=== PATIENT | male | born 2000 ===

== ENCOUNTER 2018-08-18 21:29 | Emergency (ER) | payer SELFPAY ==
[2018-08-18 21:49] VITALS: BP 138/67; PULSE 84; RESP 16; TEMP 99.9; O2SAT 98
[2018-08-18] MEDS ORDERED: Sodium Chloride 0.9% 500 ML IV ONE ×3 (22:15→22:22)
--- NOTE | 2018-08-18 23:58 | C.PDOC ---
History Of Present Illness 18 year old male with a Hx of migraines presents to the ER with a complaint of a frontal headache associated with photophobia since yesterday. Denies weakness, numbness, or URI symptoms. Time Seen by Provider: 08/18/18 21:59 Chief Complaint (Nursing): Headache History Per: Patient History/Exam Limitations: no limitations Onset/Duration Of Symptoms: Days (Yesterday) Current Symptoms Are (Timing): Still Present Preceeding Symptoms: Known Migraine Symptoms Associated Symptoms: Photophobia. denies: Blurred Vision, Nausea, Vomiting, Extremity Weakness Recent travel outside of the [place]: No Past Medical History Reviewed: Historical Data, Nursing Documentation, Vital Signs Vital Signs: Last Vital Signs Temp 99.9 F H 08/18/18 21:46 Pulse 84 08/18/18 21:46 Resp 16 08/18/18 21:46 BP 138/67 08/18/18 21:46 Pulse Ox 98 08/18/18 21:46 Family History: States: Unknown Family Hx - Social History Hx Alcohol Use: No Hx Substance Use: No - Immunization History Hx Tetanus Toxoid Vaccination: Yes Hx Influenza Vaccination: Yes Hx Pneumococcal Vaccination: No Review Of Systems Constitutional: Negative for: Fever, Chills Eyes: Positive for: Other (Photophobia) ENT: Negative for: Throat Pain Respiratory: Negative for: Cough Neurological: Positive for: Headache Physical Exam - Physical Exam Appears: Non-toxic Skin: Normal Color, Warm, Dry Head: Atraumatic, Normacephalic Eye(s): bilateral: Normal Inspection, PERRL, EOMI Ear(s): Bilateral: Normal Nose: Normal Oral Mucosa: Moist Throat: Normal, No Erythema, No Exudate Neck: Normal, No Midline Cervical Tenderness, No Paracervical Tenderness, Supple Extremity: Normal ROM (x4) Neurological/Psych: Oriented x3, Normal Speech, Normal Motor, Normal Sensation, Other (No focal deficits) Gait: Steady ED Course And Treatment O2 Sat by Pulse Oximetry: 98 (Room air) Pulse Ox Interpretation: Normal Progress Note: IV fluids, reglan, and toradol administered. Patient reports improvement of pain after medications and is requesting to leave, symptoms are likely due to patient's Hx of migraines, there is no indication for head CT at this time. Will discharge home with Rx and instructions to follow up with PMD. Disposition Counseled Patient/Family Regarding: Diagnosis, Need For Followup, Rx Given - Disposition Referrals: [facility] [Outside] Disposition: HOME/ ROUTINE Disposition Time: 23:55 Condition: STABLE Additional Instructions: Please follow up with PMD Take meds as directed Return to ER if worse Prescriptions: Acetaminophen/Butalbital/Caf [Fioricet] 1 - 2 tab PO TID PRN #20 tab PRN Reason: Headache Instructions: Migraine Headache (DC) Forms: [employer] (Frisian) - Clinical Impression Clinical Impression: Migraine, Headache - PA / BUSINESS ADMINISTRATOR / Resident Statement MD/DO has reviewed & agrees with the documentation as recorded. - Scribe Statement The provider has reviewed the documentation as recorded by the Scribdeepthi Stanley All medical record entries made by the Bernadetteibdeepthi were at my direction and personally dictated by me. I have reviewed the chart and agree that the record accurately reflects my personal performance of the history, physical exam, medical decision making, and the department course for this patient. I have also personally directed, reviewed, and agree with the discharge instructions and disposition.
== END 2018-08-19 00:01 | disposition home or self-care (01) ==
LOC: C.ER 21:29
DX: G43.909 Migraine, unspecified, not intractable, without status migrainosus (principal)
CPT/HCPCS: 96361; 96374; 96375; 99284; J1885; J2765; J7040